=== PATIENT | male | born 1985 | race Caucasian/White ===

== ENCOUNTER 2019-07-20 17:28 | Emergency (ER) | payer SELFPAY ==
[~2019-07-20] VITALS: Ht 167.6 cm; Wt 78.5 kg
[2019-07-20 17:42] VITALS: Ht 167.6 cm; Wt 78.5 kg
[2019-07-20 19:03] VITALS: BP 1132/86
== END 2019-07-20 19:03 | disposition home or self-care (01) ==
LOC: ED 17:28
DX: M54.5 Low back pain (principal); M53.3 Sacrococcygeal disorders, not elsewhere classified